=== PATIENT | male | born 1990 | race Two or more races ===

== ENCOUNTER 2023-08-16 10:01 | Emergency (ER) | payer MEDICAID, OTHER ==
[~2023-08-16] VITALS: Ht 167.6 cm; Wt 89.6 kg
[2023-08-16 10:30] VITALS: BP 118/78; PULSE 70; RESP 18; TEMP 97.3; O2SAT 97
[2023-08-16] MEDS ORDERED: ZOFR4T PO (11:14)
[2023-08-16] MEDS ORDERED: IBUP-1456 PO (11:14)
== END 2023-08-16 11:27 | disposition home or self-care (01) ==
LOC: ER 10:01
DX: S86.912A Strain of unspecified muscle(s) and tendon(s) at lower leg level, left leg, initial encounter (principal); S93.602A Unspecified sprain of left foot, initial encounter; S00.01XA Abrasion of scalp, initial encounter; W11.XXXA Fall on and from ladder, initial encounter; Y93.89 Activity, other specified; Y92.89 Other specified places as the place of occurrence of the external cause; Y99.8 Other external cause status
CPT/HCPCS: 70450; 73590; 73630